=== PATIENT | female | born 1980 | race Caucasian/White ===

== ENCOUNTER 2020-01-20 13:32 | Emergency (ER) | payer OTHER ==
[2020-01-20 13:39] VITALS: RESP 18; TEMP 98.6
--- NOTE | 2020-01-20 13:49 | ED ---
Eye Problem HPI - General Chief complaint: Eye Problems Stated complaint: eye injury Time Seen by Provider: 01/20/20 13:49 Source: patient, family Mode of arrival: ambulatory Limitations: no limitations - History of Present Illness Initial comments: Patient is a 39-year-old female presenting to emergency by with a chief complaint of right eye pain. Patient reports she was using a bungee cord to wrap around a large object when it snapped back and hit her directly into the right eye. Patient reports there was significant amount of pain which since r esolved. Patient states initially was blurry but now she has full vision. Patient denies any visual changes at this time, however states she does have some periorbital tenderness. She denies any pain with extraocular movements. Denies wearing eyeglasses. Denies any headaches at this time. She does report some ecchymosis in the periorbital region and the right side. States this occurred about one hour prior to arrival. MD chief complaint: eye pain, eye redness, eye injury -: hour(s) (1) Onset Description: sudden Location: right eye Place: other Severity: mild, moderate - Related Data Allergies Allergy/AdvReac Type Severity Reaction Status Date / Time No Known Allergies Allergy Verified 01/20/20 13:36 Review of Systems ROS Statement: Those systems with pertinent positive or pertinent negative responses have been documented in the HPI. ROS Other: All systems not noted in ROS Statement are negative. Past Medical History Past Medical History: No Reported History History of Any Multi-Drug Resistant Organisms: None Reported Past Surgical History: No Surgical Hx Reported Past Psychological History: No Psychological Hx Reported Smoking Status: Current every day smoker Past Alcohol Use History: None Reported Past Drug Use History: None Reported General Exam Limitations: no limitations General appearance: alert, in no apparent distress Head exam: Present: atraumatic, normocephalic, normal inspection Eye exam: Present: normal appearance, PERRL, EOMI, conjunctival injection (Mild). Absent: other (No signs of corneal abrasion. Negative Darion sign.) Pupils: Present: normal accommodation. Absent: other (No past extraocular movements. No hyphema.) ENT exam: Present: normal exam, normal oropharynx, mucous membranes moist, TM's normal bilaterally, normal external ear exam Neck exam: Present: normal inspection, full ROM. Absent: tenderness Respiratory exam: Present: normal lung sounds bilaterally. Absent: respiratory distress, wheezes Cardiovascular Exam: Present: regular rate, normal rhythm, normal heart sounds Extremities exam: Present: normal inspection, full ROM. Absent: tenderness Back exam: Present: normal inspection, full ROM. Absent: tenderness Neurological exam: Present: alert, oriented X3, normal gait Psychiatric exam: Present: normal affect, normal mood Skin exam: Present: warm, dry, intact, normal color Course Vital Signs 01/20/20 01/20/20 01/20/20 13:36 13:39 14:39 Temperature 98.6 F Pulse Rate 72 67 Respiratory 18 18 18 Rate Blood Pressure 112/69 108/74 O2 Sat by Pulse 99 99 Oximetry 01/20/20 15:12 Temperature 98.6 F Pulse Rate 67 Respiratory 18 Rate Blood Pressure 108/74 O2 Sat by Pulse 99 Oximetry Medical Decision Making - Medical Decision Making Patient is a 39-year-old female presenting to the emergency department with a chief complaint of right eye pain. Exam patient has some right-sided redness with no discharge. There is no hyphema. No signs of a corneal abrasion and negative Darion sign with fluorescein stain examination. There is a concern for posterior ocular injury. CT of the head and orbits reveals no acute processes. However, did reveal mild sinusitis. Patient denied any concerns or complaints for this. Strict return parameters were thoroughly discussed the patient was understanding and agreeable. She was advised to apply ice compress an alternate between Tylenol Motrin for pain control. She was advised to follow-up with chaplain resident if her symptoms don't improve. Case discussed physician. Disposition Clinical Impression: Orbit trauma, right Disposition: HOME SELF-CARE Condition: Stable Instructions (If sedation given, give patient instructions): Eye Pain (ED) Additional Instructions: Return to emergency department if symptoms worsen. Is patient prescribed a controlled substance at d/c from ED?: No Referrals: None,Stated [Primary Care Provider] - 1-2 days Time of Disposition: 14:58
[2020-01-20] MEDS ORDERED: PROPARACAINE 0.5% OPHTH DROPS 15 ML BTL RIGHT EYE STA (13:52)
[2020-01-20] MEDS ORDERED: FLUORESCEIN STRIPS 1 MG STRIP BOTH EYES ONE (14:30)
--- NOTE | 2020-01-20 14:43 | CT ---
EXAMINATION TYPE: CT orbits wo con DATE OF EXAM: 01/20/2020 COMPARISON: None HISTORY: Eye trauma CT DLP: 234.6 mGycm Automated exposure control for dose reduction was used. Multiple axial sections were obtained from the mid maxilla to the top of the frontal sinuses without contrast. There is mild mucosal thickening in the right maxillary sinus. There is no evidence of a blowout frac ture. The orbital margins are intact. Maxilla appears intact. I see no evidence of retro-orbital mass . The globes are symmetric. There is minimal mucosal thickening in the frontal and ethmoid sinuses. T he remainder of exam is unremarkable. IMPRESSION: Mild sinusitis. Normal orbits. No fracture.
[2020-01-20 15:12] VITALS: BP 108/74; PULSE 67
== END 2020-01-20 15:14 | disposition home or self-care (01) ==
LOC: EC 13:32
DX: S05.91XA Unspecified injury of right eye and orbit, initial encounter (principal); J32.9 Chronic sinusitis, unspecified; F17.200 Nicotine dependence, unspecified, uncomplicated; W22.8XXA Striking against or struck by other objects, initial encounter
CPT/HCPCS: 70480; 99283